=== PATIENT | female | born 1965 | race Caucasian/White ===

== ENCOUNTER → 2021-08-07 | Outpatient (REF) | payer OTHER | LOC: M SMT 13:03 | PROVIDERS: ATTEND Specialist | DX: N76.1 Subacute and chronic vaginitis (principal) ==

== ENCOUNTER 2021-09-25 12:25 | Day surgery (SDC) | payer BC, OTHER ==
[~2021-09-25] VITALS: Ht 160 cm; Wt 122.5 kg
[~2021-09-25 12:25] MED LIST: LR 1,000 ML IV ONE; METH-855 PO; ceFAZolin SOD 2 GM in IV 1 EA IV ONE
--- OUTSIDE RECORDS SUMMARY | 2021-09-25 12:30 | CCD ---
Author Author [facility] Organization [facility] Address Unknown Phone Unavailable Care Team Providers Care Wood Floor Layer Name Role Phone ArpitAidaRenata Unavailable PROBLEMS Type Condition ICD9-CM Code [id number] Code Onset Dates Condition S tatus W/U Status Risk SNOMED Code Notes Problem Interstitial cystitis N30.10 Active confirmed 749597416 Problem Kidney stones N20.0 Active confirmed 780955 07 Problem Chronic vaginitis N76.1 Active confirmed 14 364628 ALLERGIES Allergen (clinical drug ingredient) Drug/Non Drug Allergy do cumented on EMR Reaction Allergy Type Onset Date Status Seasonal IC([facility] Code:10030-37698) Unknown Drug Allergy Active ENCOUNTERS from 1965 to 2021-09-23 Encounter Location Date Provider Diagnosis [facility] [phone] [place] [address] Aug, Renata Munson Pre-op testing Z01.818 IMMUNIZATIONS No Information SOCIAL HISTORY Tobacco Use: Social History Observation Description Date Details (start date - stop date) Never Smoker Sex Assigned At : Social History Observation Description Sex Assigned At Unknown Language: Question Answer Notes Languages spoken: Khmer Alcohol Screening: Question Answer Notes Did you have a drink containing alcohol in the past year? No Points 0 Interpretation Negative Tobacco Use: Question Answer Notes Are you a: never smoker REASON FOR REFERRAL No Information VITAL SIGNS No information MEDICATIONS Medication SIG (Take, Route, Frequency, Duration) Notes Start Da te End Date Status Pyridium 100 MG 1 tablet after meals Orally NEEDED Active Methenamine Hippurate 1 GM 1 tablet Orally Twice a day for 90 da ys 13 Oct, 2021 Active PROCEDURES No Information RESULTS No Results REASON FOR VISIT lab order MEDICAL (GENERAL) HISTORY Type Description Date Medical History RECCURENT UTI'S Medical History CYSTITIS Surgical History X2 Surgical History TOTAL HYSTERECTOMY Surgical History COLONOSCOPY Surgical History WISDOM TEETH REMOVAL Hospitalization History SX RELATED Goals Section No Information Health Concerns No Information MEDICAL EQUIPMENT No Information MENTAL STATUS No Information FUNCTIONAL STATUS No Information ASSESSMENTS Encounter Date Diagnosis Assessment Notes Treatment Notes Treatm ent Clinical Notes Aug, Pre-op testing (ICD-10 - Z01.818) PLAN OF TREATMENT Medication Medication Name Sig Start Date Stop Date Methenamine Hippurate 1 GM 1 tablet Orally Twice a day for 90 da ys 13 Jul, 2021 Future Test Test Name Order Date Coronavirus SARS COVID-19 Amplification (In-House Hosp ital Order) COVID [id number] Next Appt Details Provider Name:Lauren De, 2021-09-25 5 08:00:00 AM, [address], , [place], [address], Insurance Providers Payer Name Payer Address Payer Phone Insured Name Patient Relati onship to Insured Coverage Start Date Coverage End Date [facility] [address] [facility] [id number] Randolph Glover
--- OUTSIDE RECORDS SUMMARY | 2021-09-25 12:30 | CCD ---
Author Author [facility] Organization [facility] Address Unknown Phone Unavailable Care Team Providers Care Manager Hospice Name Role Phone Sheyla Golden Unavailable PROBLEMS Type Condition ICD9-CM Code YGP69-CH Code Onset Dates Condition S tatus W/U Status Risk SNOMED Code Notes Problem Ankle arthritis M19.079 Active confirmed 298 389491 Problem Enthesopathy of hip region M76.899 Active 74446020 [id number]:Recurrent greater trochanteric bursitis on the rightI did offer her a formal course of therapy but she declines. I offered her an injection locally again for symptomatic relief and she agrees to go forward. We also discussed heat therapy as well as stretching exercises. Well see her back in the future as needs dictate. Problem Bilateral sacroiliitis M46.1 Active confirmed [id number] Problem Pain in left hip M25.552 Active confirmed 49 885654 Problem Pain in right hip M25.551 Active confirmed 4 4383317 Problem Arthritis of carpometacarpal (CMC) joint of right thumb M18.11 Active confirmed [id number] Problem Other chronic pain G89.29 Active confirmed 8 2542569 At the time of initial evaluation in August 2019 patient complained pain in her right ankle, which carried the differential diagnosis of plantar fasciitis versus right tibial tendon. Patient is obese, she is states her weight is fluctuating. She had a course of physical therapy, steroid injection and the orthotics. She did reasonably well, then she started to complain of right buttocks pain. She had L- spine MRI which has shown scoliosis and facet arthropathy. Her right-sided gluteal pain persisted in spite of for a course of physical therapy and the chiropractic adjustments. Now she is interested in procedural pain management. She works as a transportation engineering technician, sitting for long time. Seated posture also increases her pain. Problem Allergic rhinitis, unspecified seasonality, unspecifie d trigger J30.9 Active confirmed 28124324 Problem Posterior tibial tendinitis of right lower extremity M76.821 Active confirmed 874120382269065 Problem Right groin pain R10.31 Active confirmed 156 02214783971469 Problem Sacroiliac pain M53.3 Active confirmed 2023 24794 Problem Low back pain M54.5 Active confirmed 778799 009 Mild dextroconvex scoliosis. Moderate DDD at L4-5, moderate bilateral facet arthropathy at L4-5 and L5-S1. Problem Tendinitis of extensor tendon of right hand M77.9 Active confirmed [id number] ALLERGIES Allergen (clinical drug ingredient) Drug/Non Drug Allergy do cumented on EMR Reaction Allergy Type Onset Date Status IVP Dye Unknown Drug Allergy Active ENCOUNTERS from 1965 to 2021-09-23 Encounter Location Date Provider Diagnosis [address] [address] Aug, Sheyla Golden Encounter for laboratory gene ting for COVID-19 virus Z20.828 IMMUNIZATIONS No Information SOCIAL HISTORY Tobacco Use: Social History Observation Description Date Details (start date - stop date) Never Smoker Sex Assigned At : Social History Observation Description Sex Assigned At Unknown Alcohol Screen (Audit-C) Question Answer Notes Did you have a drink containing alcohol in the past year? No Points 0 Interpretation Negative Tobacco Use/Smoking Question Answer Notes Patient is a never smoker REASON FOR REFERRAL No Information VITAL SIGNS No information MEDICATIONS Medication SIG (Take, Route, Frequency, Duration) Notes Start Da te End Date Status Vitamin B12 3000 MCG/ML Sublingual Active predniSONE 20 MG 2 tablets with food or milk Orally Once a day f or 5 days Apr, Active Albuterol Sulfate HFA 108 (90 Base) MCG/ACT 2 puff as needed Inhalation every 4 hrs for 30 days Apr, Active Magnesium 300 MG 1 capsule with a meal Orally 1-2 times a week Active Vitamin D 2000 UNIT 1 tablet Orally Once a day Active [place] 3 1000 MG 1 capsule Orally Once a day for 30 day(s) Active Benzonatate 100 MG 1 capsule as needed Orally Three times a day for 14 days Apr, Active PROCEDURES No Information RESULTS No Results REASON FOR VISIT RAPID FOR PRE OP-REUSED PA MEDICAL (GENERAL) HISTORY Type Description Date Medical History Enthesopathy of hip region Medical History Ankle arthritis Medical History Posterior tibial tendinitis of right low er extremity Medical History Other chronic pain Medical History Bilateral sacroiliitis Medical History Pain in left hip Medical History Pain in right hip Medical History Right groin pain Surgical History hysterectomy 2007 Surgical History c-sections x2 Surgical History Colonoscopy 2017 Hospitalization History see surgery list Goals Section No Information Health Concerns No Information MEDICAL EQUIPMENT No Information MENTAL STATUS No Information FUNCTIONAL STATUS No Information ASSESSMENTS Encounter Date Diagnosis Assessment Notes Treatment Notes Treatm ent Clinical Notes Aug, Encounter for laboratory gene ting for COVID-19 virus (ICD-10 - Z20.828) Patient tested for COVID-19 today PLAN OF TREATMENT Medication Medication Name Sig Start Date Stop Date predniSONE 20 MG 2 tablets with food or milk Orally Once a day for 5 days Apr, Albuterol Sulfate HFA 108 (90 Base) MCG/ACT 2 puff as needed Inhalation every 4 hrs for 30 days Apr, Benzonatate 100 MG 1 capsule as needed Orally Three times a day for 14 days Apr, Treatment Notes Assessment Notes Clinical Notes Encounter for laboratory testing for COVID-19 virus Pa tient tested for COVID-19 today Pending Tests Test Name Order Date COVID-19 Rheonix Assay 2021-09-23 Next Appt Details prn Reason: Provider Name:Ronald Mccord, 2021-12-09 09:00:00 AM, [address] , [facility] [address], [place], [address], Insurance Providers Payer Name Payer Address Payer Phone Insured Name Patient Relati onship to Insured Coverage Start Date Coverage End Date [employer] [address] [address] [facility] [address] CYNTHIA DONNELLY elf 2021 [facility] [address] [place] [address] [place]IA DONNELLY self
--- OUTSIDE RECORDS SUMMARY | 2021-09-25 12:31 | CCD ---
Author Author [facility] Organization [facility] Address Unknown Phone Unavailable Care Team Providers Care Welder/Fitter Name Role Phone VALERIA WALLACE DC Unavailable Unavailable VALERIA WALLACE DC Unavailable Unavailable VALERIA WALLACE DC Unavailable Unavailable VALERIA WALLACE DC Unavailable Unavailable VALERIA WALLACE DC Unavailable Unavailable VALERIA WALLACE DC Unavailable Unavailable Pineda Summers MD, M.D. Unavailable [phone] Pineda Summers MD, M.D. Unavailable [phone] Pineda Summers MD, M.D. Unavailable [phone] Pineda Summers MD, M.D. Unavailable [phone] Pineda Summers MD, M.D. Unavailable [phone] Pineda Summers MD, M.D. Unavailable [phone] Pineda Summers MD, M.D. Unavailable [phone] Pineda Summers MD, M.D. Unavailable [phone] Pineda Summers MD, M.D. Unavailable [phone] Pineda Summers MD, M.D. Unavailable [phone] Pineda Summesr MD, M.D. Unavailable [phone] Pineda Summers MD, M.D. Unavailable [phone] Pineda Summers MD, M.D. Unavailable [phone] Pineda Summers MD, M.D. Unavailable [phone] Laura WOODWARD MD Unavailable Unavailable Laura WOODWARD MD Unavailable Unavailable Laura WOODWARD MD Unavailable Unavailable Laura WOODWARD MD Unavailable Unavailable Laura WOODWARD MD Unavailable Unavailable Laura WOODWARD MD Unavailable Unavailable Laura WOODWARD MD Unavailable Unavailable Laura WOODWARD MD Unavailable Unavailable Laura WOODWARD MD Unavailable Unavailable Laura WOODWARD MD Unavailable Unavailable Laura WOODWARD MD Unavailable Unavailable Laura WOODWARD MD Unavailable Unavailable Laura WOODWARD MD Unavailable Unavailable Laura WOODWARD MD Unavailable Unavailable Laura WOOWDARD MD Unavailable Unavailable Laura WOODWARD MD Unavailable Unavailable Laura WOODWARD MD Unavailable Unavailable Laura WOODWARD MD Unavailable Unavailable Laura WOODWRAD MD Unavailable Unavailable Laura WOODWARD MD Unavailable Unavailable Laura WOODWARD MD Unavailable Unavailable Laura WOODWARD MD Unavailable Unavailable Laura WOODWARD MD Unavailable Unavailable Laura WOODWARD MD Unavailable Unavailable Mitra, Antwon Bates MD Unavailable Unavailable Musssrikanth, Antwon Bates MD Unavailable Unavailable Mitra, Antwon Bates MD Unavailable Unavailable Musssrikanth, Antwon Bates MD Unavailable Unavailable Mitra, Antwon Bates MD Unavailable Unavailable Mitra, Antwon Bates MD Unavailable Unavailable Mitra, Antwon Bates MD Unavailable Unavailable Mussett, Antwon Bates MD Unavailable Unavailable Musssrikanth, Antwon Bates MD Unavailable Unavailable Mussett, Antwon Bates MD Unavailable Unavailable Musssrikanth, Antwon Bates MD Unavailable Unavailable Mussett, Antwon Bates MD Unavailable Unavailable Mussett, Antwon Bates MD Unavailable Unavailable Mussett, Antwon Bates MD Unavailable Unavailable Mussett, Antwon Bates MD Unavailable Unavailable Mussett, Antwon Bates MD Unavailable Unavailable Mussett, Antwon Bates MD Unavailable Unavailable TAMARA SUMMERS M.D. Unavailable Unavailab le OSMAN-LULA, M AURORA RPA-C Unavailable Unavailable OSMAN-LULA, M AURORA RPA-C Unavailable Unavailable OSMAN-LULA, M AURORA RPA-C Unavailable Unavailable OSMAN-LULA, M AURORA RPA-C Unavailable Unavailable OSMAN-LULA, M AURORA RPA-C Unavailable Unavailable OSMAN-LULA, M AURROA RPA-C Unavailable Unavailable OSMAN-LULA, M AURORA RPA-C Unavailable Unavailable OSMAN-LULA, M AURORA RPA-C Unavailable Unavailable OSMAN-LULA, M AURORA RPA-C Unavailable Unavailable OSMAN-LULA, M AURORA RPA-C Unavailable Unavailable OSMAN-LULA, M AURORA RPA-C Unavailable Unavailable OSMAN-LULA, M AURORA RPA-C Unavailable Unavailable OSMAN-LULA, M AURORA RPA-C Unavailable Unavailable OSMAN-LULA, M AURORA RPA-C Unavailable Unavailable OSMAN-LULA, M AURORA RPA-C Unavailable Unavailable OSMAN-LULA, M AURORA RPA-C Unavailable Unavailable OSMAN-LULA, M AURORA RPA-C Unavailable Unavailable OSMAN-LULA, M AURORA RPA-C Unavailable Unavailable OSMAN-LULA, M AURORA RPA-C Unavailable Unavailable OSMAN-LULA, M AURORA RPA-C Unavailable Unavailable OSMAN-LULA, M AURORA RPA-C Unavailable Unavailable OSMAN-LULA, M AURORA RPA-C Unavailable Unavailable OSMAN-LULA, M AURORA RPA-C Unavailable Unavailable OSMAN-LULA, M AURORA RPA-C Unavailable Unavailable OSMAN-LULA, M AURORA RPA-C Unavailable Unavailable OSMAN-LULA, M AURORA RPA-C Unavailable Unavailable OSMAN-LULA, M AURORA RPA-C Unavailable Unavailable OSMAN-LULA, M AURORA RPA-C Unavailable Unavailable OSMAN-LULA, M AURORA RPA-C Unavailable Unavailable OSMAN-LULA, M AURORA RPA-C Unavailable Unavailable OSMAN-LULA, M AURORA RPA-C Unavailable Unavailable OSMAN-LULA, M AURORA RPA-C Unavailable Unavailable OSMAN-LULA, M AURORA RPA-C Unavailable Unavailable OSMAN-LULA, M AURORA RPA-C Unavailable Unavailable OSMAN-LULA, M AURORA RPA-C Unavailable Unavailable OSMAN-LULA, M AURORA RPA-C Unavailable Unavailable OSMAN-LULA, M AURORA RPA-C Unavailable Unavailable OSMAN-LULA, M AURORA RPA-C Unavailable Unavailable OSMAN-LULA, M AURORA RPA-C Unavailable Unavailable OSMAN-LULA, M AURORA RPA-C Unavailable Unavailable GEOFF, SADAF VILLALTA MD Unavailable Unavailable GEOFF, SADAF VILLALTA MD Unavailable Unavailable GEOFF, SADAF VILLALTA MD Unavailable Unavailable GEOFF, SADAF VILLALTA MD Unavailable Unavailable GEOFF, SADAF VILLALTA MD Unavailable Unavailable GEOFF, SADAF VILLALTA MD Unavailable Unavailable GEOFF, SADAF VILLALTA MD Unavailable Unavailable GEOFF, SADAF VILLALTA MD Unavailable Unavailable GEOFF, SADAF VILLALTA MD Unavailable Unavailable GEOFF, SADAF VILLALTA MD Unavailable Unavailable GEOFF, SADAF VILLALTA MD Unavailable Unavailable GEOFF, SADAF VILLALTA MD Unavailable Unavailable GEOFF, PRYJMA AMBAR MD Unavailable Unavailable GEOFF, PRYJMA AMBAR MD Unavailable Unavailable GEOFF, PRYJMA AMBAR MD Unavailable Unavailable GEOFF, PRYJMA AMBAR MD Unavailable Unavailable GEOFF, PRYJMA AMBAR MD Unavailable Unavailable GEOFF, PRYJMA AMBAR MD Unavailable Unavailable GEOFF, PRYJMA AMBAR MD Unavailable Unavailable GEOFF, PRYJMA AMBAR MD Unavailable Unavailable GEOFF, PRYJMA AMBAR MD Unavailable Unavailable GEOFF, PRYJMA AMBAR MD Unavailable Unavailable GEOFF, PRYJMA AMBAR MD Unavailable Unavailable GEFOF, PRYJMA AMBAR MD Unavailable Unavailable GEOFF, PRYJMA AMBAR MD Unavailable Unavailable GEOFF, PRYJMA AMBAR MD Unavailable Unavailable GEOFF, PRYJMA AMBAR MD Unavailable Unavailable GEOFF, PRYJMA AMBAR MD Unavailable Unavailable GEOFF, PRYJMA AMBAR MD Unavailable Unavailable GEOFF, PRYJMA AMBAR MD Unavailable Unavailable GEOFF, PRYJMA AMBAR MD Unavailable Unavailable GEOFF, PRYJMA AMBAR MD Unavailable Unavailable GEOFF, PRYJMA AMBAR MD Unavailable Unavailable GEOFF, PRYJMA AMBAR MD Unavailable Unavailable GEOFF, PRYJMA AMBAR MD Unavailable Unavailable GEOFF, PRYJMA AMBAR MD Unavailable Unavailable GEOFF, PRYJMA AMBAR MD Unavailable Unavailable GEOFF, PRYJMA AMBAR MD Unavailable Unavailable GEOFF, PRYJMA AMBAR MD Unavailable Unavailable GEOFF, PRYJMA AMBAR MD Unavailable Unavailable GEOFF, PRYJMA AMBAR MD Unavailable Unavailable GEOFF, PRYJMA AMBAR MD Unavailable Unavailable GEOFF, PRYJMA AMBAR MD Unavailable Unavailable GEOFF, PRYJMA AMBAR MD Unavailable Unavailable GEOFF, PRYJMA AMBAR MD Unavailable Unavailable GEOFF, PRYJMA AMBAR MD Unavailable Unavailable GEOFF, PRYJMA AMBAR MD Unavailable Unavailable GEOFF, PRYJMA AMBAR MD Unavailable Unavailable GEOFF, PRYJMA AMBAR MD Unavailable Unavailable GEOFF, PRYJMA AMBAR MD Unavailable Unavailable GEOFF, PRYJMA AMBAR MD Unavailable Unavailable GEOFF, PRYJMA AMBAR MD Unavailable Unavailable GEOFF, PRYJMA AMBAR MD Unavailable Unavailable GEOFF, PRYJMA AMBAR MD Unavailable Unavailable GEOFF, PRYJMA AMBAR MD Unavailable Unavailable SADAF TELLEZ MD Unavailable Unavailable SADAF TELLEZ MD Unavailable Unavailable SADAF TELLEZ MD Unavailable Unavailable SADAF TELLEZ MD Unavailable Unavailable SADAF TELLEZ MD Unavailable Unavailable MEG, WHITLEY PA Unavailable Unavailable MEG, WHITLEY PA Unavailable Unavailable MEG, WHITLEY PA Unavailable Unavailable MEG, WHITLEY PA Unavailable Unavailable MEG, WHITLEY PA Unavailable Unavailable MEG, WHITLEY PA Unavailable Unavailable MEG, WHITLEY PA Unavailable Unavailable MEG, WHITLEY PA Unavailable Unavailable MEG, WHITLEY PA Unavailable Unavailable MEG, WHITLEY PA Unavailable Unavailable MEG, WHITLEY PA Unavailable Unavailable MEG, WHITLEY PA Unavailable Unavailable MEG, WHITLEY PA Unavailable Unavailable MEG, WHITLEY PA Unavailable Unavailable MEG, WHITLEY PA Unavailable Unavailable MGE, WHITLEY PA Unavailable Unavailable MEG, WHITLEY PA Unavailable Unavailable MEG, WHITLEY PA Unavailable Unavailable MEG, WHITLEY PA Unavailable Unavailable Jasmin Dao MD Unavailable Unavailable Jasmin Dao MD Unavailable Unavailable aJsmin Dao MD Unavailable Unavailable Jasmin Dao MD Unavailable Unavailable Jasmin Dao MD Unavailable Unavailable Jasmin Dao MD Unavailable Unavailable Jasmin Dao MD Unavailable Unavailable Jasmin Dao MD Unavailable Unavailable Jasmin Dao MD Unavailable Unavailable Jasmin Dao MD Unavailable Unavailable Jasmin Dao MD Unavailable Unavailable Jasmin Dao MD Unavailable Unavailable Jasmin Dao MD Unavailable Unavailable Jasmin Dao MD Unavailable Unavailable Jasmin Dao MD Unavailable Unavailable Jasmin Dao MD Unavailable Unavailable Jasmin Dao MD Unavailable Unavailable Jasmin Dao MD Unavailable Unavailable Jasmin Dao MD Unavailable Unavailable Jasmin Dao MD Unavailable Unavailable Jasmin Dao MD Unavailable Unavailable Jasmin Dao MD Unavailable Unavailable Jasmin Dao MD Unavailable Unavailable Jasmin Dao MD Unavailable Unavailable Jasmin Dao MD Unavailable Unavailable Prosper Jaimes MD Unavailable Unavailable Prosper Jaimes MD Unavailable Unavailable Prosper Jaimes MD Unavailable Unavailable Prosper Jaimes MD Unavailable Unavailable Prosper Jaimes MD Unavailable Unavailable Prosper Jaimes MD Unavailable Unavailable Prosper Jaimes MD Unavailable Unavailable Prosper Jaimes MD Unavailable Unavailable Prosper Jaimes MD Unavailable Unavailable Prosper Jaimes MD Unavailable Unavailable Prosper Jaimes MD Unavailable Unavailable Prosper Jaimes MD Unavailable Unavailable Prosper Jaimes MD Unavailable Unavailable Prosper Jaimes MD Unavailable Unavailable Prosper Jaimes MD Unavailable Unavailable Prosper Jaimes MD Unavailable Unavailable Prosper Jaimes MD Unavailable Unavailable Prosper Jaimes MD Unavailable Unavailable Prosper Jaimes MD Unavailable Unavailable Prosper Jaimes MD Unavailable Unavailable Prosper Jaimes MD Unavailable Unavailable Prosper Jaimes MD Unavailable Unavailable Prosper Jaimes MD Unavailable Unavailable Prosper Jaimes MD Unavailable Unavailable Prosper Jaimes MD Unavailable Unavailable Prosper Jaimes MD Unavailable Unavailable Prosper Jaimes MD Unavailable Unavailable Prosper Jaimes MD Unavailable Unavailable Prosper Jaimes MD Unavailable Unavailable Prosper Jaimes MD Unavailable Unavailable Prosper Jaimes MD Unavailable Unavailable Prosper Jaimes MD Unavailable Unavailable Prosper Jaimes MD Unavailable Unavailable Prosper Jaimes MD Unavailable Unavailable Prosper Jaimes MD Unavailable Unavailable Prosper Jaimes MD Unavailable Unavailable Prosper Jaimes MD Unavailable Unavailable Prosper Jaimes MD Unavailable Unavailable Prosper Jaimes MD Unavailable Unavailable Prosper Jaimes MD Unavailable Unavailable Prosper Jaimes MD Unavailable Unavailable Prosper Jaimes MD Unavailable Unavailable Prosper Jaimes MD Unavailable Unavailable Prosper Jaimes MD Unavailable Unavailable Prosper Jaimes MD Unavailable Unavailable Prosper Jaimes MD Unavailable Unavailable Prosper Jaimes MD Unavailable Unavailable Prosper Jaimes MD Unavailable Unavailable Prosper Jaimes MD Unavailable Unavailable Prosper Jaimes MD Unavailable Unavailable Prosper Jaimes MD Unavailable Unavailable Prosper Jaimes MD Unavailable Unavailable Prosper Jaimes MD Unavailable Unavailable Prosper Jaimes MD Unavailable Unavailable Prosper Jaimes MD Unavailable Unavailable Prosper Jaimes MD Unavailable Unavailable Prosper Jaimes MD Unavailable Unavailable Prosper Jaimes MD Unavailable Unavailable Prosper Jaimes MD Unavailable Unavailable Prosper Jaimes MD Unavailable Unavailable Prosper Jaimes MD Unavailable Unavailable Prosper Jaimes MD Unavailable Unavailable Prosper Jamies MD Unavailable Unavailable Prosper Jaimes MD Unavailable Unavailable Prosper Jaimes MD Unavailable Unavailable Prosper Jaimes MD Unavailable Unavailable Prosper Jaimes MD Unavailable Unavailable Prosper Jaimes MD Unavailable Unavailable Prosper Jaimes MD Unavailable Unavailable Prosper Jaimes MD Unavailable Unavailable Prosper Jaimes MD Unavailable Unavailable Prosper Jaimes MD Unavailable Unavailable Prosper Jaimes MD Unavailable Unavailable Prosper Jaimes MD Unavailable Unavailable Prosper Jaimes MD Unavailable Unavailable Prosper Jaimes MD Unavailable Unavailable Prosper Jaimes MD Unavailable Unavailable Antwon De Leon MD Unavailable + Antwon De Leon MD Unavailable + Antwon De Leon MD Unavailable + Antwon De Leon MD Unavailable + Antwon De Leon MD Unavailable + Antwon De Leon MD Unavailable + Antwon De Leon MD Unavailable + Antwon De Leon MD Unavailable + Antwon De Leon MD Unavailable + Antwon De Leon MD Unavailable + Antwon De Leon MD Unavailable + Antwon De Leon MD Unavailable + CRISTIANO ALMONTE MD Unavailable Unavailable CRISTIANO ALMONTE MD Unavailable Unavailable SUZY, CRISTIANO MD Unavailable Unavailable SZUY, CRISTIANO MD Unavailable Unavailable SUZY, CRISTIANO MD Unavailable Unavailable SUZY, CRISTIANO MD Unavailable Unavailable SUZY, CRISTIANO MD Unavailable Unavailable SUZY, CRISTIANO MD Unavailable Unavailable SUZY, CRISTIANO MD Unavailable Unavailable SUZY, CRISTIANO MD Unavailable Unavailable SUZY, CRISTIANO MD Unavailable Unavailable SUZY, CRISTIANO MD Unavailable Unavailable SUZY, CRISTIANO MD Unavailable Unavailable SUZY, CRISTIANO MD Unavailable Unavailable SUZY, CRISTIANO MD Unavailable Unavailable SUZY, CRISTIANO MD Unavailable Unavailable SUZY, CRISTIANO MD Unavailable Unavailable SUZY, CRISTIANO MD Unavailable Unavailable SUZY, CRISTIANO MD Unavailable Unavailable SUZY, CRISTIANO MD Unavailable Unavailable SUZY, CRISTIANO MD Unavailable Unavailable SUZY, CRISTIANO MD Unavailable Unavailable SUZY, CRISTIANO MD Unavailable Unavailable SUZY, CRISTIANO MD Unavailable Unavailable SUZY, CRISTIANO MD Unavailable Unavailable Ankit New PA-C Unavailable Ankit, New PA-C Unavailable Ankit, New PA-C Unavailable Ankit, New PA-C Unavailable Ankit, New PA-C Unavailable YOUNG, A ALICJA FOREST PATHOLOGIST Unavailable Unavailable YOUNG, A ALICJA FOREST PATHOLOGIST Unavailable Unavailable YOUNG, A ALICJA FOREST PATHOLOGIST Unavailable Unavailable YOUNG, A ALICJA FOREST PATHOLOGIST Unavailable Unavailable YOUNG, A ALICJA FOREST PATHOLOGIST Unavailable Unavailable YOUNG, A ALICJA FOREST PATHOLOGIST Unavailable Unavailable YOUNG, A ALICJA FOREST PATHOLOGIST Unavailable Unavailable YOUNG, A ALICJA FOREST PATHOLOGIST Unavailable Unavailable YOUNG, A ALICJA FOREST PATHOLOGIST Unavailable Unavailable CARLOS MILIAN DO Unavailable Unavailable CARLOS MILIAN DO Unavailable Unavailable CARLOS MILIAN DO Unavailable Unavailable CARLOS MILIAN DO Unavailable Unavailable CARLOS MILIAN DO Unavailable Unavailable CARLOS MILIAN DO Unavailable Unavailable CARLOS MILIAN DO Unavailable Unavailable CARLOS MILIAN DO Unavailable Unavailable CARLOS MILIAN DO Unavailable Unavailable CARLOS MILIAN DO Unavailable Unavailable CARLOS MILIAN DO Unavailable Unavailable CARLOS MILIAN DO Unavailable Unavailable CARLOS MILIAN DO Unavailable Unavailable CARLOS MILIAN DO Unavailable Unavailable CARLOS MILIAN DO Unavailable Unavailable CARLOS MILIAN DO Unavailable Unavailable CARLOS MILIAN DO Unavailable Unavailable CARLOS MILIAN DO Unavailable Unavailable HECARLOS CRAMER DO Unavailable Unavailable HEBELA, CARLOS DO Unavailable Unavailable HEBELA, CARLOS DO Unavailable Unavailable HEISS, CARLOS DO Unavailable Unavailable Garcia, C Clemencia RPA-C Unavailable Unavailable Garcia, C Clemencia RPA-C Unavailable Unavailable Garcia, C Clemencia RPA-C Unavailable Unavailable Garcia, C Clemencia RPA-C Unavailable Unavailable Garcia, C Clemencia RPA-C Unavailable Unavailable Garcia, C Clemencia RPA-C Unavailable Unavailable Garcia, C Clemencia RPA-C Unavailable Unavailable Garcia, C Clemencia RPA-C Unavailable Unavailable Garcia, C Clemencia RPA-C Unavailable Unavailable Garcia, C Clemencia RPA-C Unavailable Unavailable Garcia, C Clemencia RPA-C Unavailable Unavailable Garcia, C Clemencia RPA-C Unavailable Unavailable Garcia, C Clemencia RPA-C Unavailable Unavailable Garcia, C Clemencia RPA-C Unavailable Unavailable Garcia, C Clemencia RPA-C Unavailable Unavailable Garcia, C Clemencia RPA-C Unavailable Unavailable Garcia, C Clemencia RPA-C Unavailable Unavailable Garcia, C Clemencia RPA-C Unavailable Unavailable Garcia, C Clemencia RPA-C Unavailable Unavailable Garcia, C Clemencia RPA-C Unavailable Unavailable Garcia, C Clemencia RPA-C Unavailable Unavailable Garcia, C Clemencia RPA-C Unavailable Unavailable Garcia, C Clemencia RPA-C Unavailable Unavailable Garcia, C Clemencia RPA-C Unavailable Unavailable Garcia, C Clemencia RPA-C Unavailable Unavailable Garcia, C Clemencia RPA-C Unavailable Unavailable Garcia, C Clemencia RPA-C Unavailable Unavailable Garcia, C Clemencia RPA-C Unavailable Unavailable Re-disclosure Warning The records that you are about to access may contain information from federally-assisted alcohol or drug abuse programs. If such information is present, then the following federally mandated warning applies: This information has been disclosed to you from records protected by federal confidentiality rules (42 CFR part 2). The federal rules prohibit you from making any further disclosure of this information unless further disclosure is expressly permitted by the written consent of the person to whom it pertains or as otherwise permitted by 42 CFR part 2. A general authorization for the release of medical or other information is NOT sufficient for this purpose. The Federal rules restrict any use of the information to criminally investigate or prosecute any alcohol or drug abuse patient.The records that you are about to access may contain highly sensitive health information, the redisclosure of which is protected by Article 27-F of the [place] State Public Health law. If you continue you may have access to information: Regarding HIV / AIDS; Provided by facilities licensed or operated by the [facility] Office of Mental Health; or Provided by the [facility] Office for People With Developmental Disabilities. If such information is present, then the following [facility] mandated warning applies: This information has been disclosed to you from confidential records which are protected by state law. State law prohibits you from making any further disclosure of this information without the specific written consent of the person to whom it pertains, or as otherwise permitted by law. Any unauthorized further disclosure in violation of state law may result in a fine or custodial sentence or both. A general authorization for the release of medical or other information is NOT sufficient authorization for further disc losure. Allergies and Adverse Reactions Type Description Substance Reaction Status Data Source(s ) Drug allergy Drug allergy Iodinated Contrast Media (IVP DY E) Anaphylactic Shock [facility] Encounters Encounter Providers Location Date Indications Data Source(s ) Outpatient Attender: ALICJA WINSLOW 09/23/2021 12:39:0 0 PM [facility] Unknown [address] [id number] 09/23/2021 12:00:00 AM EST eCW1 ([facility]) (COVIDSWAB) COVID Swab Only [address] [facility] [address] [place] [address] 09/23/2021 12:00:00 AM EST eCW1 ([facility] Outpatient Attender: GUY WOODWARD MD ER-LAB-PNP 09/18/2021 03:54:00 PM [facility] Outpatient Attender: GUY WOODWARD MD ER-RAD 08/12/2021 01:43:00 AM EDT [facility] Outpatient Attender: Cristian De Leon MD ER-RAD 07/26/2021 03:17:00 AM [facility] Outpatient Attender: AURORA MURPHY RPA-C ER-LAB-PNP [facility]: [facility] WIN[facility]OW 05/11/2021 12:30:0 0 PM EDT [facility] Outpatient [address] [facility] [address] [place] [address] 05/11/2021 12:00:00 AM EDT eCW1 ([facility]) Outpatient Attender: AURORA MARIE ER-LAB-PNP 04/16/2021 08:05:00 PM EDT [facility] Outpatient Attender: [place] PA-C 03/24/2021 03:48:00 P M [facility] Outpatient [address] [facility] [address] [place] [address] 03/24/2021 12:00:00 AM EDT eCW1 ([facility]) Outpatient Attender: CARLOS MILIAN DO ER-WHS 12/26/2020 05:17:00 A M [facility] Outpatient Attender: AURORA MARIE ER-RAD 12/24/2020 04:08:00 PM [facility] Outpatient Attender: AURORA MARIE ER-LAB-PNP 12/21/2020 07:04:00 PM [facility] Outpatient Attender: CARLOS MILIAN DO 12/06/2020 10:18:00 A M [facility] Outpatient [address] [facility] [address] [place] [address] 12/06/2020 12:00:00 AM EST eCW1 ([facility]) Outpatient [address] [facility] [address] [place] [address] 11/27/2020 12:00:00 AM EST eCW1 ([facility]) Outpatient Attender: AMBAR TELLEZ MD CPSCAORT-SDCLOC 021 08:23:00 AM EST - 11/19/2020 12:45:00 PM EST FAMILY HX OF COLON POLYPS [facility] FAMILY HX OF COLON POLYPS Patient discharged. Outpatient Attender: AMBAR TELLEZ MD ER-HICCS 11/14/2020 06:31:00 AM [facility] Outpatient Attender: Clemencia MARIE CPSCAORT-CPSCNGSR 10/12/2020 01:44:00 PM EST - 10/12/2020 01:45:00 PM EST [facility] pital Patient discharged. Preadmit Attender: Ramirez Jaimes MD 01/25/2020 12:0 7:00 AM [facility] Outpatient Attender: Tamara estrella MDAttender: TAMARA SUMMERS M.D. ER-ASUR 01/02/2020 10:04:00 AM EDT [facility] Ad[facility] cancelled. Disregard status an d admitted date. Outpatient Attender: Ramirez Jaimes MD 12/25/2019 12:12:00 AM EST - 01/24/2020 12:00:00 AM EDT [facility] Patient discharged. Outpatient Attender: CARLOS MILIAN DO ER-WHS 12/21/2019 06:52:[address] [facility] Outpatient Attender: CARLOS MILIAN DO ER-WHS 12/06/2019 07:28:[address] [facility] Outpatient Attender: Martin Dao MD ER-RAD 12/06/2019 12:47:00 AM [facility] Outpatient Attender: Tamara estrella MDAttender: TAMARA SUMMERS M.D. ER-RAD 11/29/2019 04:15:00 PM EST [facility] Outpatient Attender: CARLOS MILIAN DO ER-LAB-PNP 11/29/2019 11:41:[address] [facility] Outpatient Attender: Tamara estrella MDAttender: TAAMRA SUMMERS M.D. ER-ASUR 11/14/2019 11:26:00 AM EST [facility] cancelled. Disregard status an d admitted date. Outpatient Attender: AURORA MARIE ER-LAB-PNP 11/01/2019 04:00:00 PM [facility] Outpatient Attender: Ramirez Jaimes MD 10/26/2019 12:02:00 AM EST - 12/24/2019 12:00:00 AM [facility] Patient discharged. Outpatient Attender: Ramirez Jaimes MD 09/25/2019 08:23:00 AM EST - 10/25/2019 12:00:00 AM [facility] Patient discharged. Outpatient Attender: Ramirez Jaimes MD 08/26/2019 12:05:00 AM EDT - 10/05/2019 08:23:00 AM [facility] Patient discharged. Outpatient Attender: WHITLEY CÁRDENAS ER-RAD 07/27/2019 01:12:00 AM [facility] Outpatient Attender: Ramirez Jaimes MD 07/26/2019 12:02:00 AM EDT - 08/25/2019 12:00:00 AM [facility] Patient discharged. Outpatient Attender: VALERIA BLANK DC ER-RAD 07/06/2019 07:56:00 AM [facility] Outpatient Attender: Ramirez Jaimes MD 06/26/2019 08:16:00 AM EDT - 07/25/2019 12:00:00 AM [facility] Patient discharged. Preadmit Attender: Paulo Manriquez MD 06/26/2019 12:03:00 AM [facility] Outpatient Attender: Paulo Manriquez MD ER-OPT 10/2018 07:11:00 AM EDT - 06/25/2019 12:00:00 AM [facility] Patient discharged. Outpatient Attender: Paulo Manriquez MD ER-OPT 10/2018 07:39:00 AM EDT - 05/25/2019 12:00:00 AM [facility] Patient discharged. Outpatient Attender: Paulo Manriquez MD ER-OPT 03/27 09:05:00 AM EDT - 04/24/2019 12:00:00 AM [facility] Preadmit Attender: Ramirez Jaimes MD 02/23/2019 12:0 4:00 AM [facility] Outpatient Attender: Ramirez Jaimes MD 01/24/2019 12:05:00 AM EDT - 02/22/2019 12:00:00 AM [facility] Outpatient Attender: Ramirez Jaimes MD 12/24/2018 12:09:00 AM [facility] - 01/23/2019 12:00:00 AM [facility] Outpatient Attender: CARLOS MILIAN DOAttender: CRISTIANO ALMONTE MD ER-[facility] 12/06/2018 07:17:00 AM [facility] Preadmit Attender: CARLOS MILIAN DO 11/02/2018 01:30:00 P M [facility] Outpatient Attender: Ramirez Jaimes MD 10/26/2018 12:07:00 AM [facility] - 12/23/2018 12:00:00 AM [facility] Outpatient Attender: Paulo Manriquez MD ER-OPT 10/2017 07:58:00 AM [facility] - 10/25/2018 12:00:00 AM [facility] Outpatient Attender: Ramirez Jaimes MD 09/25/2018 12:22:00 AM [facility] - 10/25/2018 12:00:00 AM [facility] Outpatient Attender: Ramirez Jaimes MD 09/14/2018 08:25:00 AM [facility] - 09/24/2018 12:00:00 AM [facility] Outpatient Attender: Paulo Manriquez MD ER-OPT 08/26 08:20:00 AM [facility] - 09/24/2018 12:00:00 AM [facility] Outpatient Attender: AURORA MURPHY RPA-C ER-RAD 08/24/2018 12:29:00 AM T [facility] Outpatient Attender: AURORA MARIE ER-LAB-PNP 08/19/2018 01:08:00 PM [facility] Immunizations Vaccine Date Status Description Data Source(s) COVID-19 VACCINE Moderna 01/24/2021 12:00:00 AM EDT completed NYSIIS Vaccine Series Complete: YESThis Data wa s Submitted to [facility] Via varinode. COVID-19 VACCINE Moderna 12/27/2020 12:00:00 AM EST completed NYIS Vaccine Series Complete: NOThis Data was Submitted to [facility] Via varinode. Medications Medication Brand Name Start Date Product Form Dose Route Admi nistrative Instructions Pharmacy Instructions Status Indications Reaction Description Data Source(s) methenamine hippurate 1000 MG Oral Tablet Methenamine Hippurate 1 GM Methenamine Hippurate 1 GM 08/07/2021 12:00:00 AM EDT 1.0 {tablet} active Methenamine Hippurate 1 GM eCW1 ([facility]) benzonatate 100 MG Oral Capsule Benzonatate 100 MG Benzonata te 100 MG 05/11/2021 12:00:00 AM EDT 1.0 {capsule_as_needed} active Benzonatate 100 MG eCW1 ([facility]) Prednisone 20 MG Oral Tablet predniSONE 20 MG predniSONE 20 MG 05/11/2021 12:00:00 AM EDT active predniSO NE 20 MG eCW1 ([facility]) Albuterol Sulfate HFA 108 (90 Base) MCG/ACT Albuterol Sulfate HFA 108 (90 Base) MCG/ACT 05/11/2021 12:00:00 AM EDT 2.0 {puff_as_needed} active Albuterol Sulfate HFA 108 (90 Base) MCG/ACT eCW1 ([facility]) benzonatate 100 MG Oral Capsule Benzonatate 100 MG Benzonata te 100 MG 05/11/2021 12:00:00 AM EDT 1.0 {capsule_as_needed} active Benzonatate 100 MG eCW1 ([facility]) Albuterol Sulfate HFA 108 (90 Base) MCG/ACT Albuterol Sulfate HFA 108 (90 Base) MCG/ACT 05/11/2021 12:00:00 AM EDT 2.0 {puff_as_needed} active Albuterol Sulfate HFA 108 (90 Base) MCG/ACT eCW1 ([facility]) Prednisone 20 MG Oral Tablet predniSONE 20 MG predniSONE 20 MG 05/11/2021 12:00:00 AM EDT active predniSO NE 20 MG eCW1 ([facility]) Insurance Providers Payer name Policy type / Coverage type Policy ID Covered democrat ID Covered democrat's relationship to helm Policy Helm Plan Information [facility] [id number] [facility] [place] [id number] [facility] [id number] S [id number] BLUE CROSS [id number] S [id number] BLUE CROSS [id number] S [id number] [facility] [id number] [facility] [id number] HUS [id number] [facility] [id number] HUS [id number] [facility] [id number] WIF [id number] BLUE CROSS [id number] HUS [id number] [facility] [id number] S [id number] BLUE CROSS [id number] S [id number] [facility] [id number] HUS [id number] [facility] [id number] HUS [id number] BLUE CROSS [id number] HUS [id number] SELF-PAY UNAVAILABLE S UNAVAILA BLE EXCELLUS [place] [id number] W [id number] [employer]CE[employer] [place] [id number] W [id number] EXCELLUS [place] [id number] S [id number] BLUE CROSS [id number] HUS [id number] ANSI-Commercial [id number] ANSI-Commercial [id number] ANSI-Commercial [id number] ANSI-Commercial [id number] ANSI-Commercial [id number] ANSI-Commercial [id number] ANSI-Commercial [id number] ANSI-Commercial [id number] ANSI-Commercial [id number] ANSI-Commercial [id number] ANSI-Commercial [id number] ANSI-Commercial [id number] ANSI-Commercial [id number] ANSI-Commercial [id number] [facility] [id number] HUS [id number] [facility] [id number] HUS [id number] [facility] [id number] HUS [id number] [facility] [id number] S [id number] BLUE CROSS [id number] HUS [id number] [facility] [id number] HUS [id number] BLUE CROSS [id number] HUS [id number] [facility] [id number] HUS [id number] WORKERS COMPENSATION-NON [id number] S [id number] WORKERS COMPENSATION [id number] S [id number] WORKERS COMPENSATION [id number] S [id number] SELF-PAY UNAVAILABLE S UNAVAILA BLE SELF-PAY UNAVAILABLE S UNAVAILA BLE [id number] Problems, Conditions, and Diagnoses Code Display Name Description Problem Type Effective Dates Data Source(s) N28.1 Cyst of kidney, acquired CYST OF KIDNEY, ACQUIRED Diag nosis 08/12/2021 01:43:00 AM EDT [facility] N20.0 Calculus of kidney CALCULUS OF KIDNEY Diagnosis 01:43:00 AM EDT [facility] R39.15 Urgency of urination URGENCY OF URINATION Diagnosis 07/26/2021 03:17:00 AM T [facility] B96.20 Unspecified Escherichia coli [E. coli] as the cause of diseases classified elsewhere UNSP ESCHERICHIA COLI THE CAUSE OF DISEASES CLA Diagnosis 07/18/2021 01:40:00 PM EDT [facility] N39.0 Urinary tract infection, site not specif ied URINARY TRACT INFECTION, SITE NOT SPECIFIED Diagnosis 07/18/2021 01:40:00 PM EDT [facility] E78.2 Mixed hyperlipidemia MIXED HYPERLIPIDEMIA Diagnosis 07/18/2021 01:40:00 PM [facility] R07.89 Other chest pain OTHER CHEST PAIN Diagnosis 05/11/2021 01 :00:00 PM [facility] J40 Bronchitis, not specified as acute or ch ronic BRONCHITIS, NOT SPECIFIED ACUTE OR CHRONIC Diagnosis 05/11/2021 01:00:00 PM EDT [facility] R30.0 Dysuria DYSURIA Diagnosis 04/16/2021 08:05:00 PM ED T [facility] J30.9 Allergic rhinitis, unspecified ALLERGIC RHINITIS, UNSP ECIFIED Diagnosis 03/24/2021 03:48:00 PM T [facility] J02.9 Acute pharyngitis, unspecified ACUTE PHARYNGITIS, UNSP ECIFIED Diagnosis 03/24/2021 03:48:00 PM [facility] R09.82 Postnasal drip POSTNASAL DRIP Diagnosis 03/24/2021 03:48: 00 PM T [facility] M79.10 MYALGIA, UNSPECIFIED SITE MYALGIA, UNSPECIFIED SITE Di agnosis 03/24/2021 03:48:00 PM EDT [facility] R05 Cough COUGH Diagnosis 03/24/2021 03:48:00 PM ED T [facility] Z12.31 Encounter for screening mammogram for ma lignant neoplasm of breast ENCNTR SCREEN MAMMOGRAM FOR MALIGNANT NEOPLASM OF BREAST Diagnosis 12/2020 05:17:00 AM [facility] N30.01 Acute cystitis with hematuria ACUTE CYSTITIS WITH TREY TURIA Diagnosis 12/24/2020 04:08:00 PM [facility] B96.89 Other specified bacterial ag ents as the cause of diseases classified elsewhere OTH BACTERIAL AGENTS THE CAUSE OF DISEASES CLAS Diagnosis 12/21/2020 07:04:00 PM [facility] Z01.419 Encounter for gynecological examination (general) (routine) without abnormal findings ENCNTR FOR ROD WELDER EXAM (GENERAL) (ROUTINE) Diagnosis 12/06/2020 10:18:00 AM [facility] Z12.4 Encounter for screening for malignant ne oplasm of cervix ENCOUNTER FOR SCREENING FOR MALIGNANT NEOPLASM OF CERVIX Diagnosis 12/06/2020 10:18: 00 AM [facility] Z80.0 Family history of malignant neoplasm of digestive organs FAMILY HISTORY OF MALIGNANT NEOPLASM OF DIGESTIVE ORGANS Diagnosis 11/19/2020 08:23:00 A [facility] Z86.010 Personal history of colonic polyps PERSONAL HIST ORY OF COLONIC POLYPS Diagnosis 11/19/2020 08:23:00 AM [facility] Z01.812 Encounter for preprocedural laboratory e xamination ENCOUNTER FOR PREPROCEDURAL LABORATORY EXAMINATION Diagnosis 11/14/2020 06:31:00 AM [facility] Z20.822 CONTACT WITH AND (SUSPECTED) EXPOSURE TO COVID-19 CONTACT WITH AND (SUSPECTED) EXPOSURE TO COVID-19 Diagnosis 11/14/2020 06:31:00 AM [facility] N76.1 [id number] Chronic vaginitis Problem 08/07/2021 12:00:0 0 AM EDT eCW1 ([facility]) N20.0 [id number] Kidney stones Problem 08/07/2021 12:00:00 AM EDT eCW1 ([facility]) N30.10 [id number] Interstitial cystitis Problem 08/07/2021 12: 00:00 AM EDT eCW1 ([facility]) J30.9 [id number] Allergic rhinitis, unspecified s easonality, unspecified trigger Problem 03/24/2021 12:00:00 AM EDT eCW1 ([facility]) Surgeries/Procedures Procedure Description Date Indications Data Source(s) Injection, propofol, 10 mg 11/19/2020 12:00:00 AM [facility] COLONOSCOPY FLX DX W/WO COLLJ SPECIMENS DIAGNOSTIC COLONOSCO PY 11/19/2020 12:00:00 AM [facility] Inspection of Lower Intestinal Tract, Vi a Natural or Artificial Opening Endoscopic INSPECTION OF LOWER INTESTINAL TRACT, ENDO 11/19/2020 12:00:00 AM [facility] Results ID Date Data Source [id number] 09/18/2021 04:52:00 PM [phone] Name Value Range Interpretation Code Description Data Merry rce(s) Supporting Document(s) GLU 136 mg/dL 70-110 H [facility] Patients taking Sulfasalazine may have f alsely depressedGlucose levels. Patients taking Sulfapyridine may havefalsely elevated Glucose levels. Patients should be drawnfor Glucose before the initial administration of eitherdrug. BUN 15 mg/dL 7-23 [facility] CRE 0.734 mg/dL 0.500-1.300 [facility] GFR > 60 mL/min [facility] CHLORIDE 103 mmol/L 99-110 [facility] NA 140 mmol/L 136-147 [facility] POTASSIUM 4.0 mmol/L 3.5-5.1 [facility] TCO2 31 mmol/L 20-33 [facility] ANION GAP 10.0 10.0-20.0 [facility] CA 9.3 mg/dL 8.3-10.7 [facility] ID Date Data Source [id number] 09/18/2021 04:41:00 PM EST [facility] FAX YO [phone] Name Value Range Interpretation Code Description Data Mrery rce(s) Supporting Document(s) WBC 6.94 x10E3/uL 4.0-10.5 N [facility] RBC 4.52 x10E6/uL 4.20-5.40 [facility] Hemoglobin 14.8 g/dL 12.0-16.0 [facility] Hematocrit 44.6 % 37.0-47.0 [facility] MCV 98.7 fL 81.0-99.0 N [facility] MCH 32.7 pg 27.0-31.0 H [facility] MCHC 33.2 g/dL 32.7-35.6 [facility] RDW 12.2 % 11.5-14.0 [facility] Platelet count 297 x10E3/uL 150-450 N [facility] ital MPV 10.4 fl 6.9-9.5 H [facility] Neutrophils 62.4 % 34-64 N [facility] Lymphocytes 29.4 % 25-45 N [facility] Monocytes 5.3 % 1.7-10.6 [facility] Eosinophils 2.0 % 0.4-7.0 [facility] Basophils 0.6 % 0.1-2.0 N [facility] Imm. Gran. 0.3 % 0.1-2.0 [facility] Abs. Neutro. 4.33 x10E3/uL 1.2-7.6 [facility] Abs. Lymph. 2.04 x10E3/uL 1.0-3.5 N [facility] Abs. Kimball. 0.37 x10E3/uL 0.1-1.0 N [facility] Abs. Eosin. 0.14 x10E3/uL 0.1-0.7 N [facility] Abs. Baso. 0.04 x10E3/uL 0.0-0.1 [facility] Abs. Imm. Gran. 0.02 x10E3/uL 0.0-0.1 N [facility] spital ANRBC% 0 % 0 N [facility] ID Date Data Source [id number] 09/12/2021 12:00:00 AM EST [facility] Name Value Range Interpretation Code Description Data Merry rce(s) Supporting Document(s) SARS-CoV2 Rapid PCR Negative [facility] This lab was ordered by [facility] and reported by [facility]. ID Date Data Source [id number] 08/12/2021 03:51:00 PM EDT [facility] Exam Number: [id number] OF EXAMINATIO N: 08/12/2021 14:54 EDTU/S RENALCOMPARED TO:02/13/2017HISTORY: Renal stonesReal-time ultrasound imaging was performed utilizing B-mode/tello scaleand color Doppler imaging where applicable.FINDINGS:The right kidney measures 10.6 cm and the left kidney measures 11.4 cmlongitudinally. Both kidneys display normal homogeneous echo texturethroughout and show no hydronephrosis.2 simple cyst in the mid toupper pole of right kidney each measuring 1.2 x 0.8 cm are noted.IMPRESSION:2 simple cyst in the mid to upper pole of right kidney each measuring1.2 x 0.8 cm are not ed. No definite renal stonesElectronically signed in PS360 by: Griselda Massey M.D. 115:39 EDT Reported By: Dayan MASSEY M.D. Signed By: Quirino MASSEY M.D. Name Value Range Interpretation Code Description Data Merry rce(s) Supporting Document(s) ID Date Data Source [id number] 07/26/2021 11:13:00 AM EDT [facility] Exam Number: [id number] OF EXAMINATIO N: 07/26/2021 10:36 EDTU/S BLADDER ONLYHISTORY: Urinary urgencyReal-time ultrasound imaging was performed utilizing B-mode/tello scaleand color Doppler imaging where applicable.FINDINGS:Distended bladder volume is 69 mL. There is no post void residual orany filling defects..IMPRESSION:Normal bladder ultrasound.Electronically signed in PS360 by: Griselda Massey M.D. 111:01 EDT Reported By: Dayan MASSEY M.D. Signed By: Quirino MASSEY M.D. Name Value Range Interpretation Code Description Data Merry rce(s) Supporting Document(s) ID Date Data Source [id number] 07/20/2021 11:18:00 AM EDT [facility] Name Value Range Interpretation Code Description Data Merry rce(s) Supporting Document(s) ORGANISM [facility] COLONY COUNT N [facility] ID Date Data Source [id number] 07/18/2021 03:32:00 PM [facility]T [facility] Name Value Range Interpretation Code Description Data Merry rce(s) Supporting Document(s) URINE RBC 0-2 RBCs/HPF NONE SEEN [facility] URINE WBC 11-20 WBCs/HPF NONE SEEN N [facility] l A URINE CULTURE HAS BEEN ADDED TO THIS S PECIMEN URINE BACTERIA Few NONE SEEN N [facility] l URINE EPI. Moderate NONE SEEN [facility] ID Date Data Source [id number] 07/18/2021 03:32:00 PM EDT [facility] Name Value Range Interpretation Code Description Data Merry rce(s) Supporting Document(s) URINE COLOR ORANGE [facility] UAPR SL Cloudy [facility] CHEMICAL TESTS NOT PERFORMED DUE TO MEDI PEYMAN INDUCED COLORCHANGE UGLU Test not performed NEGATIVE N [facility] pital URINE BILIRUBIN Test not performed NEGATIVE [facility] UKET Test not performed NEGATIVE N [facility] USG Test not performed 1.010-1.025 N [facility] ospital UBLO Test not performed NEGATIVE N [facility] pital UpH Test not performed 5.0-8.0 N [facility] UPRO Test not performed Negative [facility] UUB Test not performed mg/dL 0.2-1.0 [facility] UNIT Test not performed Negative N [facility] ULEU Test not performed Negative [facility] ID Date Data Source [id number] 07/18/2021 02:28:00 PM EDT [facility] Name Value Range Interpretation Code Description Data Merry rce(s) Supporting Document(s) CHOL 192 mg/dL 100-200 [facility] TRIG 190 mg/dL 30-190 N [facility] HDL 50 mg/dL 35-80 N [facility] LDL DIRECT 121 mg/dL 0-100 H [facility] VLDL 21 mg/dL 0-100 [facility] ID Date Data Source [id number] 07/18/2021 02:28:00 PM EDT [facility] Name Value Range Interpretation Code Description Data Merry rce(s) Supporting Document(s) GLU 116 mg/dL 70-110 H [facility] Patients taking Sulfasalazine may have f alsely depressedGlucose levels. Patients taking Sulfapyridine may havefalsely elevated Glucose levels. Patients should be drawnfor Glucose before the initial administration of eitherdrug. BUN 15 mg/dL 7-23 [facility] CRE 0.650 mg/dL 0.500-1.300 [facility] GFR > 60 mL/min [facility] CHLORIDE 108 mmol/L 99-110 [facility] NA 143 mmol/L 136-147 [facility] POTASSIUM 4.2 mmol/L 3.5-5.1 [facility] TCO2 29 mmol/L 20-33 [facility] ANION GAP 10.2 10.0-20.0 [facility] CA 8.6 mg/dL 8.3-10.7 [facility] ALKALINE PHOS 134 U/L 45-117 H [facility] TP 7.0 g/dL 6.0-7.8 [facility] ALB 3.5 g/dL 3.5-5.0 [facility] ESRD Dialysis patient Albumin reference range: 2.9-4.4 g/dL GL 3.5 g/dL 2.3-3.5 [facility] A/G 1.0 1.0-2.5 [facility] T. BILIRUBIN 0.5 mg/dL 0.1-1.1 [facility] The [facility] [place] Total Bilirubin is n ot recommended forpatients undergoing treatment with eltrombopag (Promacta)due to the potential for falsely elevated results. ALTI 36 U/L 6-54 [facility] Patients taking Sulfasalazine and/or Sul fapyridine may havefalsely depressed ALT levels. Patients should be drawn forALT before the initial administration of either drug. AST 20 U/L 6-38 [facility] Patients taking Sulfasalazine and/or Sul fapyridine may havefalsely depressed AST levels. Patients should be drawn forAST before the initial administration of either drug. ID Date Data Source [id number] 07/18/2021 02:02:00 PM EDT [facility] Name Value Range Interpretation Code Description Data Merry rce(s) Supporting Document(s) WBC 6.26 x10E3/uL 4.0-10.5 [facility] RBC 4.22 x10E6/uL 4.20-5.40 [facility] Hemoglobin 13.9 g/dL 12.0-16.0 [facility] Hematocrit 42.1 % 37.0-47.0 [facility] MCV 99.8 fL 81.0-99.0 H [facility] MCH 32.9 pg 27.0-31.0 H [facility] MCHC 33.0 g/dL 32.7-35.6 [facility] RDW 12.7 % 11.5-14.0 [facility] Platelet count 268 x10E3/uL 150-450 N [facility] ital MPV 11.1 fl 6.9-9.5 H [facility] Neutrophils 59.7 % 34-64 N [facility] Lymphocytes 29.6 % 25-45 [facility] Monocytes 6.4 % 1.7-10.6 [facility] Eosinophils 3.5 % 0.4-7.0 [facility] Basophils 0.6 % 0.1-2.0 [facility] Imm. Gran. 0.2 % 0.1-2.0 [facility] Abs. Neutro. 3.74 x10E3/uL 1.2-7.6 [facility] Abs. Lymph. 1.85 x10E3/uL 1.0-3.5 [facility] Abs. Kim[place]. 0.40 x10E3/uL 0.1-1.0 N [facility] Abs. Eosin. 0.22 x10E3/uL 0.1-0.7 [facility] Abs. Baso. 0.04 x10E3/uL 0.0-0.1 N [facility] Abs. Imm. Gran. 0.01 x10E3/uL 0.0-0.1 N [facility] spital ANRBC% 0 % 0 N [facility] ID Date Data Source [id number] 05/14/2021 12:00:00 AM EDT [facility] Name Value Range Interpretation Code Description Data Merry rce(s) Supporting Document(s) SARS-CoV2 Rapid PCR Negative [facility] This lab was ordered by [facility] and reported by [facility]. ID Date Data Source [id number] 04/18/2021 11:49:00 AM EDT [facility] Name Value Range Interpretation Code Description Data Merry rce(s) Supporting Document(s) ORGANISM [facility] COLONY COUNT N [facility] ID Date Data Source [id number] 04/16/2021 08:54:00 PM EDT [facility] Name Value Range Interpretation Code Description Data Merry rce(s) Supporting Document(s) URINE COLOR Yellow [facility] UAPR Cloudy N [facility] UGLU Negative NEGATIVE N [facility] URINE BILIRUBIN Negative NEGATIVE [facility] UKET Negative NEGATIVE [facility] USG 1.027 1.010-1.025 H [facility] UBLO Negative NEGATIVE [facility] UpH 5.0 5.0-8.0 [facility] UPRO Negative Negative [facility] UUB 0.2 mg/dL 0.2-1.0 [facility] UNIT Negative Negative [facility] ULEU Negative Negative [facility] ID Date Data Source [id number] 12/26/2020 12:05:00 PM EST [facility] Exam Number: [id number] OF EXAMINATIO N: 12/26/2020 6:56 ESTDIGITAL MAMMO JADE ROUTINEHISTORY: ScreeningFINDINGS:Based on the personal and family history information your patientsupplied at the time of imaging, her lifetime risk of breast cancerestimated date by the Tyrer-Cuzick model is 7.2%. If anything changesin the personal and/or family history this percentage could increaseor decrease. Currently, NCCN and ACS recommended adjunctive breast MRIscreening starting at age 30 for women with a > 20-25% lifetime riskof developing breast cancer.Comparison is made to prior study dated 12/21/2019.2-D bilateral digital mammogram in the CC and MLO planes wereperformed with supplemental 3-D tomosynthesis of both breasts.The images were analyzed through the latest version of the CREAT computer aided diagnosis system.The patient states that her last clinical breast examination wasFebruary 2020.Craniocaudal and oblique lateral views of the breasts were obtained.(A) The breasts are almost entirely fatty. There is no dominant mass,suspicious clustered calcification, or non surgical architecturaldistortion.IMPRESSION:No mammographic evidence of malignancy.Final assessment of breast composition BIRAD classification (A) Thebreasts are almost entirely fatty.BIRAD CATEGORY 2 - BENIGN FINDINGS, ROUTINE YEARLY MAMMOGRAPHICFOLLOW-UP RECOMMENDED.10-15% of cancers are not identified by mammography. This usuallyoccurs when the mass is of the same radiographic density as thesurrounding breast tissue, emphasizing the importance of breast selfexamination (BSE) and physical examination. A normal mammogram shouldnot delay biopsy if a suspicious mass or abnormal findings are presentupon physical examination.Electronically signed in PS360 by: Griselda Massey M.D. 111:53 EST Reported By: Dayan MASSEY M.D. Signed By: Quirino MASSEY M.D. Name Value Range Interpretation Code Description Data Merry rce(s) Supporting Document(s) ID Date Data Source [id number] 12/24/2020 04:35:00 PM EST [facility] Exam Number: [id number] OF EXAMINATIO N: 12/24/2020 16:10 ESTHISTORY: Cystitis with hematuriaTECHNIQUE: 1 views of the abdomen were obtained.FINDINGS:The intra-abdominal bowel gas pattern is nonspecific with no evidencefor obstruction. No abnormal calcifications are identified within theabdomen. No evidence for organomegaly or ascites is noted.No free intraperitoneal air is noted.IMPRESSION:Moderate amount of stool mainly in the right hemicolonElectronically signed in PS360 by: Griselda Massey M.D. 116:23 EST Reported By: - Quirino MASSEY M.D. Signed By: Quirino MASSEY M.D. Name Value Range Interpretation Code Description Data Merry rce(s) Supporting Document(s) ID Date Data Source [id number] 12/21/2020 07:55:00 PM EST [facility] Name Value Range Interpretation Code Description Data Merry rce(s) Supporting Document(s) URINE RBC 3-5 RBCs/HPF NONE SEEN [facility] URINE WBC 21-50 WBCs/HPF NONE SEEN [facility] l A URINE CULTURE HAS BEEN ADDED TO THIS PECIMEN URINE BACTERIA Moderate NONE SEEN [facility] l A URINE CULTURE HAS BEEN ADDED TO THIS [facility] URINE EPI. Few NONE SEEN [facility] MODERATE AMORPHOUSFEW CALCIUM OXALATE ID Date Data Source [id number] 12/21/2020 07:55:00 PM EST [facility] Name Value Range Interpretation Code Description Data Merry rce(s) Supporting Document(s) URINE COLOR DK YELLOW [facility] UAPR Turbid [facility] UGLU Negative NEGATIVE [facility] URINE BILIRUBIN [facility] NE[facility] NEGATIVE [facility] USG 1.034 1.010-1.025 [facility] UBLO 3+ NEGATIVE [facility] UpH 5.0 5.0-8.0 [facility] UPRO 2+ Negative [facility] UUB 0.2 mg/dL 0.2-1.0 [facility] UNIT Negative Negative [facility] ULEU 1+ Negative [facility] ID Date Data Source [id number] 12/07/2020 01:11:00 PM EST [facility] Specimen Comment: Source.............Vag inaSpecimen Comment: LMP / Prev Treat...HystSpecimen Comment: No. of containers..01 ThinPrep VialPerformed at: [facility] [address] [place] [address] [id number] Director: Herman Bailon MD, Phone: [phone] Name Value Range Interpretation Code Description Data Merry rce(s) Supporting Document(s) TEST METHODOLOG Comment . [facility] This liquid based ThinPrep(R) pap test w as screened withthe use of an image guided system. DIAGNOSIS: Comment . [facility] NEGATIVE FOR INTRAEPITHELIAL LESION OR M ALIGNANCY. SPECIMEN ADEQU. Comment . [facility] Satisfactory for evaluation. PERFORMED BY: Comment . [facility] Cori Rowley, Assessment Expert (ASCP) CYTOLO.HISTORY: Comment . [facility] al Date [facility] Specimen ID PAP Test Res ult HPV Test [id number]/29/2019 [id number] NIL09/27/2018 [id number] NIL01/15/2017 [id number] NIL09/13/2008 [id number] NIL07/09/2007 [id number] NIL . . . [facility] NOTE: Comment . [facility] The Pap smear is a screening test design ed to aid in thedetection of premalignant and malignant conditions of theuterine cervix. It is not a diagnostic procedure andshould not be used as the sole means of detecting cervicalcancer. Both false-positive and false-negative reports dooccur. REFLEX HPV Comment . [facility] The HPV DNA reflex criteria were not met with this specimenresult therefore, no HPV testing was performed. ID Date Data Source [id number] 11/19/2020 12:27:00 PM [facility] Hospital Name: CYNTHIA DONNELLY : 1965 Ag e/Sex: 55F Attending Physician: Ambar Tellez MD Med Rec #: [id number] Admission Date: 11/19/20 Room #: Admitting Physician: Report Number: [id number] _ cc: Ramirez Jaimes MD; Ambar Tellez MD Send Report To: Report Status - Signed Endoscopy Department Patient Name: Cynthia Donnelly Attending MD: Ambar Tellez , Instrument Name: [id number] Procedure Date No Time: 11/19/2020 Date of : 1965 Procedure: Colonoscopy Indications: High risk colon cancer surveillance: Personal history of colonic polyps Providers: Ambar Tellez Referring MD: Requesting Provider: Medicines: Monitored Anesthesia Care Complications: No immediate complications. Estimated blood loss: None. Procedure: Pre-Anesthesia Assessment: - Prior to the procedure, a History and Physical was performed, and patient medications, allergies and sensitivities were reviewed. The patient's tolerance of previous anesthesia was reviewed. After I obtained informed consent, the scope was passed under direct vision. Throughout the procedure, the patient's blood pressure, pulse, and oxygen saturations were monitored continuously. The Colonoscope was introduced through the anus and advanced to the cecum, identified by appendice al orifice and ileocecal valve. The colonoscopy was performed without difficulty. The patient tolerated the procedure well. The quality of the bowel preparation was good. Findings: The entire examined colon appeared normal on direct and retroflexion views. Impression: - The entire examined colon is normal on direct and retroflexion views. - No specimens collected. Recommendation: - Repeat colonoscopy in 5 years for surveillance. Ambar Tellez, 11/19/2020 12:27:15 PM Number of Addenda: 0 Note Initiated On: 11/19/2020 11:17 AM [address] [facility] [id number] REPORT SIGNATURE ON FILE Dictated By: Ambar Tellez MD <Electronically signed by Ambar Tellez MD in OV> 11/19/20 1227 Dictation Date/Time: 11/19/20 1117 Transcribed Date/Time: 11/19/20 1227/IATRICS Name Value Range Interpretation Code Description Data Merry rce(s) Supporting Document(s) ID Date Data Source [id number] 11/14/2020 08:00:00 AM EST [facility] Name Value Range Interpretation Code Description Data Merry rce(s) Supporting Document(s) SARS coronavirus 2 RNA Not Detected [facility] This lab was ordered by [facility] and reported by [facility]. ID Date Data Source [id number] 11/15/2020 03:08:00 PM EST [facility] [id number] [facility], [place], [place] [id number] Director: Christine Duarte PhD, Phone: [phone] Name Value Range Interpretation Code Description Data Merry rce(s) Supporting Document(s) SARS-CoV-2, [facility]UCHO Not Detected Not Detected [facility] This nucleic acid amplification test was developed and itsperformance characteristics determined by [facility]. Nucleic acid amplification tests include RT-PCR and TMA. This test has not been FDA cleared orapproved. This test has been authorized by FDA under anEmergency Use Authorization (EUA). This test is onlyauthorized for the duration of time the declaration thatcircumstances exist justifying the authorization of theemergency use of in vitro diagnostic tests for detection [id number] virus and/or diagnosis of COVID-19 infectionunder section 564(b)(1) of the Act, 21 U.S.C. 360bbb-3(b)(1), unless the authorization is terminated or revokedsooner.When diagnostic testing is negative, the possibility of afalse negative result should be considered in the contextof a patient's recent exposures and the presence ofclinical signs and symptoms consistent with COVID-19. Anindividual without symptoms of COVID-19 and who is notshedding SARS-CoV-2 virus would expect to have a negative(not detected ) result in this assay.Methodology: Nucleic Acid Amplification (CHUCHO) Procedure Social History Code Duration Value Status Description Data Source(s ) Smoking 08/07/2021 12:00:00 AM EDT Never Smoker completed Never S moker eCW1 ([facility]) Smoking 03/24/2021 12:00:00 AM EDT Never Smoker completed Never S moker eCW1 ([facility]) Smoking 03/24/2021 12:00:00 AM EDT Never Smoker completed Never S moker eCW1 ([facility]) Smoking 03/24/2021 12:00:00 AM EDT Never Smoker completed Never S moker eCW1 ([facility]) Smoking 12/06/2020 12:00:00 AM EST Never Smoker completed Never S moker eCW1 ([facility]) Vital Signs ID Date Data Source UNK Name Value Range Interpretation Code Description Data Source(s) Body height 63 [in_i] 63 [in_i] W1 ([facility]) Body height 160.02 cm 160.02 cm W1 ([facility]) Body weight 267 [lb_av] 267 [lb_av] eCW1 ([facility]) Body weight 121.11 kg 121.11 kg [facility]1 ([facility]) Body mass index (BMI) [Ratio] 47.29 kg/m2 47.29 kg/m2 [facility] ([facility]) Body temperature 97.7 [degF] 97.7 [degF] W1 ( [facility]) Heart rate 68 /min 68 /min eCW1 ([facility]) Respiratory rate 20 /min 20 /min eCW1 ([facility]) Oxygen saturation in Arterial blood by Pulse oximetry 96 % 96 % eCW1 ([facility]) Systolic blood pressure 128 mm[Hg] 128 mm[Hg] e CW1 ([facility]) Diastolic blood pressure 80 mm[Hg] 80 mm[Hg] eCW1 ([facility]) Body height 63 [in_i] 63 [in_i] eCW1 ([facility]) Body weight 266 [lb_av] 266 [lb_av] eCW1 ([facility]) Body mass index (BMI) [Ratio] 47.11 kg/m2 47.11 kg/m2 W1 ([facility]) Body temperature 97.8 [degF] 97.8 [degF] eCW1 ( [facility]) Heart rate 62 /min 62 /min eCW1 ([facility]) Respiratory rate 20 /min 20 /min eCW1 ([facility]) Oxygen saturation in Arterial blood by Pulse oximetry 98 % 98 % eCW1 ([facility]) Systolic blood pressure 136 mm[Hg] 136 mm[Hg] e CW1 ([facility]) Diastolic blood pressure 78 mm[Hg] 78 mm[Hg] eCW1 ([facility]) Body height 63 [in_i] 63 [in_i] eCW1 ([facility]) Body height 160.02 cm 160.02 cm eCW1 ([facility]) Body weight 268.4 [lb_av] 268.4 [lb_av] eCW1 ([facility]) Body weight 121.75 kg 121.75 kg eCW1 ([facility]) Body mass index (BMI) [Ratio] 47.54 kg/m2 47.54 kg/m2 eCW1 ([facility]) Heart rate 81 /min 81 /min eCW1 ([facility]) Systolic blood pressure 142 mm[Hg] 142 mm[Hg] e CW1 ([facility]) Diastolic blood pressure 80 mm[Hg] 80 mm[Hg] eCW1 ([facility]) ID Date Data Source [id number] 11/30/2020 01:59:00 PM EST [facility] Name Value Range Interpretation Code Description Data Source(s) Weight 4192 4192 [facility] Temperature 97.6 97.6 [facility] Respiratory Effort 1 1 [facility] Respiratory Rate 20 20 [facility] Pulse Rate 73 73 [facility] Height 63 63 [facility] Blood Pressure 105/71 105/71 [facility] Weight 4192 4192 [facility] Temperature 97.6 97.6 [facility] Respiratory Effort 1 1 [facility] Respiratory Rate 20 20 [facility] Pulse Rate 73 73 [facility] Height 63 63 [facility] Blood Pressure 105/71 105/71 [facility] Patient Treatment Plan of Care Planned Activity Planned Date Details Description Data Source (s) methenamine hippurate 1000 MG Oral Tablet 08/07/2021 12:00:00 AM ED T eCW1 ([facility]) benzonatate 100 MG Oral Capsule 05/11/2021 12:00:00 AM EDT eCW1 ([facility]) Albuterol Sulfate HFA 108 (90 Base) MCG/ACT 05/11/2021 12:00:00 AM EDT eCW1 ([facility]) Prednisone 20 MG Oral Tablet 05/11/2021 12:00:00 AM EDT eCW1 ([facility]) benzonatate 100 MG Oral Capsule 05/11/2021 12:00:00 AM EDT eCW1 ([facility]) Albuterol Sulfate HFA 108 (90 Base) MCG/ACT 05/11/2021 12:00:00 AM EDT eCW1 ([facility]) Prednisone 20 MG Oral Tablet 05/11/2021 12:00:00 AM EDT eCW1 ([facility])
[2021-09-25] MEDS ORDERED: propofoL 200 MG/20 ML VIAL As Ordered ONE (15:34)
[2021-09-25] MEDS ORDERED: dexameTHASONE 4 MG/ML 1ML VIAL (J1100 PER 1MG) As Ordered ONE (15:34)
[2021-09-25] MEDS ORDERED: LIDOCAINE 2% 100MG/5ML SDV (FOR ANES.) As Ordered ONE (15:34)
[2021-09-25] MEDS ORDERED: ACETAMINOPHEN 1000MG 100ML IV BTL (OFIRMEV) (J0131 PER 10MG) As Ordered ONE (15:34)
[2021-09-25] MEDS ORDERED: ONDANSETRON 4MG/2ML VIAL As Ordered ONE (15:34)
[2021-09-25] MEDS ORDERED: MIDAZOLAM INJ 2MG/2ML VIAL (J2250 PER 1MG) As Ordered ONE (15:35)
[2021-09-25] MEDS ORDERED: fentaNYL 100 MCG/2 ML INJECTION (J3010) As Ordered ONE (15:35)
[2021-09-25] MEDS ORDERED: LIDOCAINE 2% 5ML JELLY UROJET As Ordered ONE ×2 (16:03→16:08)
[2021-09-25] MEDS ORDERED: LIDOCAINE 1% MDV 50ML VIAL As Ordered ONE (16:08)
--- NOTE | 2021-09-25 17:17 | ROOPDOC ---
[facility] Report Of Operation Report of Operation DATE OF PROCEDURE: 09/25/21 PREPROCEDURE DIAGNOSES: Interstitial Cystitis, recurrent urinary tract infections, and gross hematuria POSTPROCEDURE DIAGNOSES: Same PROCEDURE PERFORMED: Cystoscopy, hydrodistention, and bladder biopsies SURGEON: Renata Woodward MD ANESTHESIA: MAC ESTIMATED BLOOD LOSS: Approximately 0mL. COMPLICATIONS: None FINDINGS: Some glomerulations especially at the base of the bladder SPECIMENS REMOVED: Random bladder biopsies PROCEDURE NOTE: The patient is a 56-year-old female with a history of interstitial cystitis, recurrent urinary tract infections and an episode of gross hematuria. She has had cystoscopies and hydrodistention's in the past which have helped with her symptoms. She wanted this repeated. After discussing all different options, alternatives, risk, benefits surgery was scheduled and informed consent was obtained. DESCRIPTION OF PROCEDURE: The patient was brought into the operating room and sequential compression devices were in place. Preoperative antibiotics have been given. Anesthesia was induced. The patient was then placed in the lithotomy position and careful attention was paid that her pressure points were well padded and protected. She was prepped and draped in usual fashion. A 21 Portuguese cystoscope was inserted and the bladder was emptied and then filled with gravity drainage. This was filled to 600 cc and left inside her bladder for 10 minutes. When her bladder was emptied there was significant glomerulations at the base and some mild trigonitis changes. There was no evidence of stones, erythematous patches, lesions, or other significant abnormalities. Random bladder biopsies were taken and fulguration was done. A red rubber catheter was placed and intravesical lidocaine with lidocaine jelly was placed in the bladder. The patient tolerated the procedure well and was returned to the recovery room in stable condition. RENATA WOODWARD MD Sep 25, 2021 17:17
[2021-09-25 17:30] VITALS: BP 131/69
== END 2021-09-25 17:38 | disposition home or self-care (01) ==
LOC: M SDC 12:25
PROVIDERS: ATTEND Specialist
DX: N30.01 Acute cystitis with hematuria (principal); L40.9 Psoriasis, unspecified; G47.33 Obstructive sleep apnea (adult) (pediatric); Z79.899 Other long term (current) drug therapy; Z91.041 Radiographic dye allergy status
CPT/HCPCS: 52204; 52260; 88305; J0131; J0690; J1100; J2250; J2405; J3010